=== PATIENT | female | born 1990 | race Hispanic/Latino ===

== ENCOUNTER 2020-11-24 17:46 | Emergency (ER) | payer OTHER ==
[~2020-11-24] VITALS: Ht 144.8 cm; Wt 99.8 kg
[2020-11-24 17:49] VITALS: BP 136/101
== END 2020-11-24 23:44 | disposition home or self-care (01) ==
LOC: EDH 23:44
DX: R10.9 Unspecified abdominal pain (principal); Z53.21 Procedure and treatment not carried out due to patient leaving prior to being seen by health care provider

== ENCOUNTER 2021-10-24 06:31 | Emergency (ER) | payer OTHER ==
[~2021-10-24] VITALS: Ht 172.7 cm; Wt 103.4 kg
[2021-10-24] MEDS ORDERED: ACET-2079 PO (08:53)
[2021-10-24] MEDS ORDERED: DEXAMETHASONE SOD PHOSPHATE 10MG/ML 1ML VIAL IM SCH (09:00)
[2021-10-24 09:14] VITALS: BP 119/63
== END 2021-10-24 09:27 | disposition home or self-care (01) ==
LOC: EDH 06:31
DX: J02.9 Acute pharyngitis, unspecified (principal); Z79.52 Long term (current) use of systemic steroids; Z20.822 Contact with and (suspected) exposure to COVID-19
CPT/HCPCS: 87635; 87804 ×2; 87880; 96372; 99283; C9803; J1100